=== PATIENT | female | born 2000 | race Caucasian/White ===

== ENCOUNTER 2025-02-06 16:50 | Emergency (ER) | payer MEDICAID ==
[~2025-02-06] VITALS: Ht 162.6 cm; Wt 60.0 kg
[2025-02-06 17:11] VITALS: O2SAT 99
[2025-02-06] MEDS: TETANUS, DIPHTHERIA, PERTUSSIS VAC/PF 0.5ML (>10YR OLD) IM ONE (18:00)
[2025-02-06] MEDS: LIDOCAINE HCL 1% 20ML VIAL INL ONE (18:00)
[2025-02-06] MEDS: IBUPROFEN 600MG TABLET PO ONE (18:00)
[2025-02-06] MEDS: ACETAMINOPHEN 500MG TABLET PO ONE (18:00)
[2025-02-06] MEDS ORDERED: IBUP-2028 MT (19:51)
[2025-02-06] MEDS ORDERED: TOPUD MT (19:51)
[2025-02-06] MEDS ORDERED: BO1 TP (19:51)
[2025-02-06] MEDS ORDERED: AMOX1TAB16 MT (19:59)
[2025-02-06] MEDS: BACITRACIN ZINC OINT UDPKT TOP ONE (20:35)
[2025-02-06 20:36] VITALS: BP 122/81; PULSE 65; RESP 12; TEMP 36.7; O2SAT 100
== END 2025-02-06 20:38 | disposition home or self-care (01) ==
LOC: ER 16:50
DX: S61.213A Laceration without foreign body of left middle finger without damage to nail, initial encounter (principal); S61.211A Laceration without foreign body of left index finger without damage to nail, initial encounter; Z79.899 Other long term (current) drug therapy; X58.XXXA Exposure to other specified factors, initial encounter; Y93.89 Activity, other specified; Y92.89 Other specified places as the place of occurrence of the external cause; Y99.8 Other external cause status
CPT/HCPCS: 99284; 73130; 90715; 12002; 90471; J2003